=== PATIENT | female | born 1975 | race Caucasian/White ===

== ENCOUNTER 2025-04-21 15:42 | Outpatient (CLI) | payer OTHER, SELFPAY ==
--- NOTE | ~2025-04-21 | US_ITS ---
EXAMINATION: US retroperitoneal comp, 04/21/2025 15:50 TISSUE INSERTER HISTORY: Elevated serum creatinine Comparison: None Technique: Green-scale and color Doppler images were obtained. Findings: KIDNEYS: Right Kidney: Right kidney 11.2 x 4.2 x 5.6 cm, there is atrophy of the kidney with severe hydronephrosis. Left Kidney: Left kidney 11.9 x 5.3 x 5 cm, normal. Bladder: The bladder is unremarkable. . Impression: Atrophy of the right kidney with severe hydronephrosis. CT is recommended to further evaluate. Reviewed, dictated and finalized at location P. UE INSERTER Impression: Atrophy of the right kidney with severe hydronephrosis. CT is recommended to fu rther evaluate.
== END 2025-04-21 15:43 | disposition home or self-care (01) ==
PROVIDERS: PCP Registered Nurse; Visit Provider Registered Nurse
DX: R79.89 Other specified abnormal findings of blood chemistry (principal); N26.1 Atrophy of kidney (terminal); N13.30 Unspecified hydronephrosis
CPT/HCPCS: 76770

== ENCOUNTER 2025-04-29 11:15 | Outpatient (CLI) | payer OTHER, SELFPAY ==
--- NOTE | ~2025-04-29 | CT_ITS ---
EXAMINATION: CT abdomen pelvis wo con DATE: 04/29/2025 11:39 INDICATION: Hydronephrosis TECHNIQUE: Computed tomography (CT) of the abdomen and pelvis was performed without intravenous contrast. The dose-length product was 893.27 mGy-cm. Automated exposure control and iterative reconstruction technique were employed. COMPARISON: None. FINDINGS: There is right hydronephrosis. Consider UPJ obstruction. There is severe right renal atrophy. Lung bases unremarkable. Heart size normal. No significant pleural or pericardial effusion. The liver, spleen, pancreas, adrenal glands and left kidney are unremarkable. Gallbladder is present. Normal appendix. No abnormal pelvic masses or fluid collections. No significant vascular abnormality. IMPRESSION: 1. Probable chronic right UPJ obstruction with moderate-severe hydronephrosis and renal atrophy. Reviewed, dictated and finalized at location O. RANCE ADJUSTER IMPRESSION: 1. Probable chronic right UPJ obstruction with moderate-severe hydronephrosis a nd renal atrophy.
== END 2025-04-29 11:16 | disposition home or self-care (01) ==
LOC: MICIMG 11:16
PROVIDERS: PCP Registered Nurse; Visit Provider Registered Nurse
DX: N13.30 Unspecified hydronephrosis (principal)
CPT/HCPCS: 74176

== ENCOUNTER 2025-06-02 07:19 | Outpatient (CLI) | payer OTHER, SELFPAY ==
--- NOTE | ~2025-06-02 | NM_ITS ---
EXAMINATION: RAMESH marvin renal scan DATE: 06/02/2025 13:00 INDICATION: Hydronephrosis TECHNIQUE: 7.9 mCi Tc-99m MAG3 was administered IV. 40 mg furosemide was administered IV immediately afterward. The patient was scanned in the supine position. A posterior abdominal radionuclide angiogram was obtained. A subsequent time course of static images of the kidneys, ureters, and bladder was obtained. COMPARISON: None FINDINGS: The posterior abdominal radionuclide angiogram and sequential static images show normal size, position, and morphology of the left kidney. The right kidney is normally located but appears small. Peak renal parenchymal uptake was 2 min in left kidney and 23 min in right kidney (normal peak 3-5 minutes). The relative early renal uptake was 78% on the left and 22% on the right (<40% is abnormal). The right hydronephrosis with delayed accumulation of the collecting system most evident at the upper pole of the right kidney and at the renal pelvis. No abnormalities of the ureters or bladder are seen. T1/2 for clearance of activity from the left kidney and proximal collecting system was 6.5 minutes. T1/2 for clearance of activity from the right kidney and proximal collecting system was 13 minutes. Notes on interpretation: T1/2 <10 minutes is normal, 10-15 minutes is low grade obstruction of questionable clinical significance, 15-20 minutes is partial obstruction that is likely clinically significant, >20 minutes is high grade obstruction. Note that false positives may be seen with supine positioning, dehydration, severely dilated nonobstructed kidney, atonic collecting system, poor renal function, and chronic furosemide use. IMPRESSION: 1. Significant decrease in function of the atrophic right kidney which contributes only 22% to total renal function. 2. Right hydronephrosis with mild delay in activity clearance from the right kidney which is consistent with low-grade obstruction of questionable clinical significance. Reviewed, dictated and finalized at location A. SUPERINTENDENT IMPRESSION: 1. Significant decrease in function of the atrophic right kidney which contrib utes only 22% to total renal function. 2. Right hydronephrosis with mild delay in activity clearance from the right ki dney which is consistent with low-grade obstruction of questionable clinical si gnificance.
== END 2025-06-02 07:20 | disposition home or self-care (01) ==
PROVIDERS: PCP Registered Nurse
DX: R94.4 Abnormal results of kidney function studies (principal); N13.30 Unspecified hydronephrosis
CPT/HCPCS: 78708; A9562; J1938